=== PATIENT | male | born 1975 | race American Indian/Alaskan Native ===

== ENCOUNTER 2019-11-26 19:06 | Emergency (ER) | payer SELFPAY ==
--- NOTE | 2019-11-26 21:15 | Emergency Department Report ---
Blank Doc - Documentation Documentation: 44-year-old male that presents with chest pain, SOB, with radiation to left arm. This initial assessment/diagnostic orders/clinical plan/treatment(s) is/are subject to change based on patient's health status, clinical progression and re- assessment by fellow clinical providers in the ED. Further treatment and workup at subsequent clinical providers discretion. Patient/guardians urged not to elope from the ED as their condition may be serious if not clinically assessed and managed. Initial orders include: 1- Patient sent to MAIN ED for further evaluation and treatment 2- labs 3- EKG 4- CXR
[2019-11-26 21:52] LABS: Basophils % (Auto) 0.8 % (0.0-1.8); Eosinophils # (Auto) 0.2 K/mm3 (0.0-0.4); Eosinophils % (Auto) 2.9 % (0.0-4.3); Hematocrit 41.6 % (35.5-45.6); Hemoglobin 14.3 gm/dl (11.8-15.2); Lymphocytes # (Auto) 3.1 K/mm3 (1.2-5.4); Lymphocytes % (Auto) 50.8 % (13.4-35.0); Mean Corpuscular HGB Conc 34 % (32-34); Mean Corpuscular Volume 94 fl (84-94); Monocytes # (Auto) 0.3 K/mm3 (0.0-0.8); Monocytes % (Auto) 5.4 % (0.0-7.3); Platelet Count 180 K/mm3 (140-440); Red Blood Count 4.44 M/mm3 (3.65-5.03); Red Cell Distribution Width 13.6 % (13.2-15.2)
--- NOTE | 2019-11-26 21:57 | XRay Report ---
CHEST 2 VIEWS, 11/26/2019 9:39 PM INDICATION: Chest pain COMPARISON: None FINDINGS: Support devices: None Heart: The cardiac silhouette is normal in size. Lungs/pleura: The lungs are well expanded and appear clear. Additional findings: Evaluation of bony structures demonstrates no acute bony abnormality. IMPRESSION: 1. No evidence of acute cardiopulmonary process. Signer Name: Alma Torres MD Signed: 11/26/2019 9:53 PM Workstation Name: [id number]
[2019-11-26 22:10] LABS: INR 0.92 (0.87-1.13)
[2019-11-26 22:11] LABS: Partial Thromboplastin Time 31.6 Sec. (24.2-36.6)
[2019-11-26 22:17] LABS: Alanine Aminotransferase 11 units/L (7-56); Albumin 4.4 g/dL (3.9-5); BUN/Creatinine Ratio 12; Blood Urea Nitrogen 13 mg/dL (9-20); Calcium 9.5 mg/dL (8.4-10.2); Hemolysis Index 5
[2019-11-26] MEDS ORDERED: IBUPROFEN 800 MG TAB PO ONE (22:20)
[2019-11-26 22:30] VITALS: BP 122/78
[2019-11-26 22:30] LABS: Bacteria,Urine 1+ /HPF (Negative); Bilirubin,Urine NEG (Negative); Blood,Urine NEG (Negative); Color,Urine Yellow (Yellow); Mucus,Urine 1+ /HPF; Protein,Urine <15 mg/dL mg/dL (Negative)
--- NOTE | 2019-11-26 22:33 | Emergency Department Report ---
ED Chest Pain HPI - General Chief Complaint: Chest Pain Stated Complaint: CHEST PAIN Time Seen by Provider: 11/26/19 21:14 Source: patient Mode of arrival: Ambulatory Limitations: No Limitations - History of Present Illness Initial Comments: Mr. Cavazos is a 44-year-old healthy gentleman with history of tobacco abuse who presents with chest pain for several days. He has sharp left-sided intermittent chest pain which occurs at rest or with exertion. Bilateral arm tingling. No shortness of breath. No recent travel. No leg pain. No trauma. Does not have a PCP. Has not had primary care in quite some time. Grandmother of heart disease 1 year ago. Pain is mild to moderate without radiation.. MD Complaint: chest pain -: Gradual, days(s) (several days) Onset: during rest, during exertion Pain Location: left chest Severity: moderate Severity scale (0 -10): 6 Quality: sharp Consistency: intermittent Improves With: nothing Worsens With: nothing Treatments Prior to Arrival: none - Related Data Allergies Allergy/AdvReac Type Severity Reaction Status Date / Time amoxicillin Allergy Swelling Verified 11/26/19 21:19 Heart Score - HEART Score History: Slightly suspicious EKG: Normal Age: < 45 Risk factors: 1-2 risk factors Troponin: < normal limit HEART Score: 1 ED Review of Systems ROS: Stated complaint: CHEST PAIN Other details as noted in HPI Comment: All other systems reviewed and negative Constitutional: denies: fever, malaise Respiratory: denies: cough, shortness of breath Cardiovascular: chest pain. denies: palpitations Neurological: paresthesias ED Past Medical Hx - Past Medical History Previous Medical History?: No - Surgical History Past Surgical History?: Yes Additional Surgical History: right finger - Family History Family history: CAD/TN, hypertension - Social History Smoking Status: Never Smoker Substance Use Type: None ED Physical Exam - General Limitations: No Limitations General appearance: alert, in no apparent distress - Head Head exam: Present: atraumatic, normocephalic - Eye Eye exam: Present: normal appearance - ENT ENT exam: Present: mucous membranes moist - Neck Neck exam: Present: normal inspection, full ROM - Respiratory Respiratory exam: Present: normal lung sounds bilaterally. Absent: respiratory distress, wheezes, rales, rhonchi - Cardiovascular Cardiovascular Exam: Present: regular rate, normal rhythm, normal heart sounds. Absent: systolic murmur, diastolic murmur, rubs, gallop - GI/Abdominal GI/Abdominal exam: Present: soft, normal bowel sounds. Absent: distended, tenderness, guarding, rebound - Rectal Rectal exam: Present: deferred - Extremities Exam Extremities exam: Present: normal inspection - Neurological Exam Neurological exam: Present: alert, oriented X3 - Psychiatric Psychiatric exam: Present: normal affect, normal mood - Skin Skin exam: Present: warm, dry, intact, normal color. Absent: rash ED Course Vital Signs 11/26/19 21:21 Temperature 98.7 F Pulse Rate 87 Respiratory 18 Rate Blood Pressure 106/76 [Left] O2 Sat by Pulse 98 Oximetry ED Medical Decision Making - Lab Data Result diagrams: 11/26/19 21:27 11/26/19 21:27 Laboratory Results - last 24 hr 11/26/19 11/26/19 11/26/19 21:27 21:27 21:27 WBC 6.1 RBC 4.44 Hgb 14.3 Hct 41.6 MCV 94 MCH 32 MCHC 34 RDW 13.6 Plt Count 180 Lymph % (Auto) 50.8 H [place] % (Auto) 5.4 Eos % (Auto) 2.9 Baso % (Auto) 0.8 Lymph # 3.1 [place] # 0.3 Eos # 0.2 Baso # 0.0 Seg Neutrophils % 40.1 Seg Neutrophils # 2.4 PT 12.5 INR 0.92 APTT 31.6 Sodium 143 Potassium 4.0 Chloride 102.8 Carbon Dioxide 28 Anion Gap 16 BUN 13 Creatinine 1.1 Estimated GFR > 60 BUN/Creatinine Ratio 12 Glucose 104 H Calcium 9.5 Total Bilirubin 0.50 AST 15 ALT 11 Alkaline Phosphatase 94 Troponin T < 0.010 Total Protein 7.1 Albumin 4.4 Albumin/Globulin Ratio 1.6 - EKG Data -: EKG Interpreted by In EKG shows normal: sinus rhythm, axis, intervals, QRS complexes, ST-T waves Rate: normal - EKG Data Interpretation: normal EKG - Radiology Data Radiology results: report reviewed Chest radiograph: No acute findings - Medical Decision Making Mr. Cavazos is a 44-year-old male history of tobacco abuse who presents with chest pain atypical for acute coronary syndrome. Differential diagnosis inclu emma chest wall pain, pleurisy. On today's examination emergent causes such as pulmonary embolism, aortic dissection, pneumonia or pneumothorax have been ruled out. PERC negative. He Understands that he is low risk for acute coronary which is his concern. HEART score one. However he does understand that he will need to probably follow up with her wardrobe assistant. Cardiology referral was arranged prior to his discharge. Strongly also encouraged to follow with outpatient medicine physician. Referral was also given. He understands to return if symptoms progress. Critical care attestation.: If time is entered above; I have spent that time in minutes in the direct care of this critically ill patient, excluding procedure time. ED Disposition Clinical Impression: Chest pain Disposition: DC-01 TO HOME OR SELFCARE Is pt being admited?: No Does the pt Need Aspirin: No Condition: Stable Instructions: Chest Pain (ED) Referrals: PATRICIA ESPINOZA MD [Staff Physician] - 3-5 Days JOSÉ MIGUEL SILVER MD [Staff Physician] - 3-5 Days Forms: Work/School Release Form(ED)
[2019-11-26 22:34] LABS: Amphetamine Screen,Urine PRESUMPTIVE NEGATIVE; Benzodiazepines Screen,Urine PRESUMPTIVE NEGATIVE; Cocaine Screen,Urine PRESUMPTIVE NEGATIVE; Methadone Screen,Urine PRESUMPTIVE NEGATIVE; Opiate Screen,Urine PRESUMPTIVE NEGATIVE
[2019-11-26 22:48] LABS: Cannabinoid Screen,Urine PRESUMPTIVE POSITIVE
== END 2019-11-26 22:59 | disposition home or self-care (01) ==
LOC: ED 19:06
DX: R07.89 Other chest pain (principal); Z88.1 Allergy status to other antibiotic agents
CPT/HCPCS: 36415; 71046; 80053; 80307; 81001; 84484; 85025; 85610; 85730; 93005; 93010